=== PATIENT | female | born 1970 | race Caucasian/White ===

== ENCOUNTER 2024-03-13 11:05 | Emergency (ER) | payer MEDICAID ==
[~2024-03-13] VITALS: Ht 162.6 cm; Wt 102.1 kg
[2024-03-13] MEDS ORDERED: PredniSONE 20 MG Tab PO ONE (14:05)
[2024-03-13] MEDS ORDERED: PRED20 PO (14:08)
== END 2024-03-13 14:38 | disposition home or self-care (01) ==
LOC: ER 11:05
DX: U07.1 COVID-19 (principal)
CPT/HCPCS: 93005; 93010; 99284-25; J7512